=== PATIENT | female | born 1975 | race Caucasian/White ===

== ENCOUNTER 2019-10-02 06:35 | Outpatient (RCR) | payer OTHER ==
[~2019-10-02] VITALS: Ht 170 cm; Wt 68.1 kg
[2019-10-02] MEDS ORDERED: LABE200T7 PO (14:45)
== END 2019-10-02 16:00 | disposition home or self-care (01) ==
LOC: PREOP 06:35
PROVIDERS: ATTEND Obstetrics & Gynecology
DX: Z01.812 Encounter for preprocedural laboratory examination (principal); D25.9 Leiomyoma of uterus, unspecified; N81.4 Uterovaginal prolapse, unspecified; Z20.828 Contact with and (suspected) exposure to other viral communicable diseases

== ENCOUNTER → 2019-10-04 | Outpatient (CLI) | payer OTHER ==
[~2019-10-04] MED LIST: LABE200T7 PO
== END ==
LOC: LAB FS 11:49
PROVIDERS: ATTEND Obstetrics & Gynecology
DX: Z01.812 Encounter for preprocedural laboratory examination (principal); D25.9 Leiomyoma of uterus, unspecified; N81.4 Uterovaginal prolapse, unspecified; Z20.828 Contact with and (suspected) exposure to other viral communicable diseases
CPT/HCPCS: 87635

== ENCOUNTER 2019-10-08 06:08 | Day surgery (SDC) | payer OTHER ==
[~2019-10-08] VITALS: Ht 170 cm; Wt 68.1 kg
[2019-10-08] VITALS (23 sets, daily range): BP systolic 73–130; BP diastolic 43–90
--- OUTSIDE RECORDS SUMMARY | 2019-10-08 06:13 | XMS REPORT | Continuity of Care Document ---
Author Organization Unknown Address Unknown Phone Unavailable Allergies Active Description Code Type Severity Reaction Onset Reported/Identified Relationship to Patient Clinical Status Yes No Known Drug Allergies [id number] Drug Allergy Unknown N/A 10/02/2019 Medications There is no data. Problems Date Dx Coded Attending Type Code Diagnosis Diagnosed By 03/10/1599 SEALS DO, PAULINA E Ot D25.9 LEIOMYOMA OF UTERUS, UNSPECIFIED 03/10/1599 SEALS DO, PAULINA E Ot N81.4 UTEROVAGINAL PROLAPSE, UNSPECIFIED 03/10/1599 SEALS DO, PAULINA E Ot Z01.8 12 ENCOUNTER FOR PREPROCEDURAL LABORATORY E 03/10/1599 SEALS DO, PAULINA E Ot Z20.8 28 CONTACT W AND EXPOSURE TO OTH VIRAL COMM 10/06/2019 SEALS DO, PAULINA E Ot D25.9 LEIOMYOMA OF UTERUS, UNSPECIFIED 10/06/2019 SEALS DO, PAULINA E Ot N81.4 UTEROVAGINAL PROLAPSE, UNSPECIFIED 10/06/2019 SEALS DO, PAULINA E Ot Z01.8 12 ENCOUNTER FOR PREPROCEDURAL LABORATORY E 10/06/2019 SEALS DO, PAULINA E Ot Z20.8 28 CONTACT W AND EXPOSURE TO OTH VIRAL COMM Procedures There is no data. Results Test Result Range TSH - 03/02/19 08:59 TSH 3.05 mIU/L NRG Coronavirus SARS-CoV-2 SO 2018 - 0 12:00 Coronavirus Ab [Units/volume] in Serum Negative Negative Encounters ACCT No. Visit Date/Time Discharge Status Pt. Type Provider Facility Loc./Unit Complaint [id number] 06/22/2019 09:15:00 06/22/2019 23:59: 59 CLS Outpatient AVINASH FRANCES [facility] [id number] 03/02/2019 08:45:00 Document Registration [id number] 10/04/2019 11:49:00 020 23:59:59 CLS Outpatient PAULINA WILSON DO [facility] LAB FS PRE SURG REQ [id number] 10/02/2019 06:35:00 16:00:00 DIS Outpatient PAULINA WILSON DO [facility] PREOP UTERINE FIBROID,PELVIC PAIN [id number] 10/08/2019 06:08:[address] Outpatient PAULINA WILSON DO [facility] SDC PELVIC PAIN,UTERINE FIBROID
[2019-10-08] MEDS ORDERED: ceFAZolin 2 GM IV Premixed 50 ML IV ONE (06:30)
[2019-10-08] MEDS ORDERED: fentaNYL INJECTION 100 MCG/2 ML AMP ONE (06:37)
[2019-10-08] MEDS ORDERED: MIDAZOLAM 2 MG/2 ML (VERSED) VIAL ONE (06:37)
[2019-10-08] MEDS ORDERED: ONDANSETRON 4 MG/2 ML (SDV) Z0FRAN ONE (06:38)
[2019-10-08] MEDS ORDERED: LIDOCAINE PF 2% 5 ML (XYLOCAINE) VIAL ONE (06:38)
[2019-10-08] MEDS ORDERED: proPOfol 200 MG/20 ML (DIPRIVAN) VIAL IV ONE (06:38)
[2019-10-08] MEDS ORDERED: DEXAMETHASONE 10 MG/ML (DECADRON) 1 ML VIAL ONE (06:38)
[2019-10-08] MEDS ORDERED: SEVOFLURANE (ULTANE) 15 ML INHAL SOLN ONE (06:39)
[2019-10-08] MEDS: LACTATED RINGERS 1,000 ML IV PRN ×2 (06:40→07:47)
[2019-10-08] MEDS ORDERED: LIDOCAINE/EPI 2% 1:100,00 (XYLOCAINE) 20 ML VIAL ONE (06:43)
[2019-10-08] MEDS ORDERED: ESTROGENS CONJ. CREAM 30 GM (PREMARIN) TUBE ONE (06:44)
[2019-10-08] MEDS ORDERED: CATHETER FLUSH 10 ML SYR IV PRN (06:45)
[2019-10-08 06:54] LABS: BASOPHILS % (AUTO) 0 % (0-10); EOSINOPHILS # (AUTO) 0.3 10^3/uL (0.0-0.3); EOSINOPHILS % (AUTO) 5 % (0-10); HEMATOCRIT 37 % (35-52); HEMOGLOBIN 12.9 G/DL (11.5-16.0); LYMPHOCYTES # (AUTO) 1.5 X 10^3 (1.0-4.0); LYMPHOCYTES % (AUTO) 22 % (12-44); MEAN CORPUSCULAR HEMOGLOBIN 32 PG (25-34); MEAN CORPUSCULAR HGB CONC 35 G/DL (32-36); MEAN CORPUSCULAR VOLUME 91 FL (80-99); MEAN PLATELET VOLUME 10.1 FL (7.4-10.4); MONOCYTES # (AUTO) 0.4 X 10^3 (0.0-1.0); MONOCYTES % (AUTO) 6 % (0-12); NEUTROPHILS # (AUTO) 4.6 X 10^3 (1.8-7.8); NEUTROPHILS % (AUTO) 66 % (42-75); PLATELET COUNT 251 10^3/uL (130-400); RED CELL DISTRIBUTION WIDTH 12.2 % (10.0-14.5); WHITE BLOOD COUNT 6.9 10^3/uL (4.3-11.0)
--- NOTE | 2019-10-08 07:22 | History & Physical-OB/GYN ---
History of Present Illness History of Present Illness Reason for visit/HPI Ms. Syed presents to the hospital for scheduled surgery, Total Vaginal Hysterectomy secondary to pelvic pain, uterine prolapse and uterine fibroids seen on pelvic ultrasound Date of Admission October 08, 2019 Date Seen by a Provider: Oct 08, 2019 Time Seen by a Provider: 06:55 I consulted on this patient on 10/08/19 07:17 Attending Physician Jono Gaming DO Admitting Physician Jono Gaming DO Consult Allergies and Home Medications Allergies Coded Allergies: No Known Drug Allergies (Unverified , 10/02/19) Home Medications Labetalol HCl 200 Mg Tablet, 200 MG PO TID, (Reported) Patient Home Medication List Home Medication List Reviewed: Yes Past Uminvlg-Gydhij-Untpmq Hx Patient Social History Marrital Status: Number of Children: 6 Number of living children: 6 Employed/Student: employed Alcohol Use: Denies Use Recreational Drug Use: No Smoking Status: Never a Smoker Former Smoker, Quit: Oct 02, 1999 2nd Hand Smoke Exposure: No Recent Foreign Travel: No Contact w/other who traveled: No Recent Hopitalizations: No Immunizations Up To Date Pediatric: No Seasonal Allergies Seasonal Allergies: No Surgeries No Respiratory No Cardiovascular Yes Hypertension Neurological No Reproductive System Female Reproductive Disorders: Denies, Menstrual Problems Genitourinary No Gastrointestinal No Musculoskeletal No Endocrine History of Endocrine Disorders: No HEENT History of HEENT Disorders: Yes (GLASSES) Loss of Vision: Denies Hearing Impairment: Denies Psychosocial History of Psychiatric Problem: No Integumentary History of Skin or Integumenta: No Blood Transfusions History of Blood Disorders: No Adverse Reaction to a Blood Tr: No Review of Systems Constitutional: see HPI Physical Exam Physical Exam Vital Signs Vital Signs Date Time Temp Pulse Resp B/P (MAP) Pulse Ox O2 Delivery O2 Flow Rate FiO2 10/08/19 06:20 36.4 84 18 130/90 (103) 97 Room Air Capillary Refill : Labs Laboratory Tests 10/08/19 06:45: White Blood Count 6.9, Red Blood Count 4.02L, Hemoglobin 12.9, Hematocrit 37, Mean Corpuscular Volume 91, Mean Corpuscular Hemoglobin 32, Mean Corpuscular Hemoglobin Concent 35, Red Cell Distribution Width 12.2, Platelet Count 251, Mean Platelet Volume 10.1, Neutrophils (%) (Auto) 66, Lymphocytes (%) (Auto) 22, Monocytes (%) (Auto) 6, Eosinophils (%) (Auto) 5, Basophils (%) (Auto) 0, Neutrophils # (Auto) 4.6, Lymphocytes # (Auto) 1.5, Monocytes # (Auto) 0.4, Eosinophils # (Auto) 0.3, Basophils # (Auto) 0.0 General Appearance: No Apparent Distress, WD/WN Respiratory: Chest Non Tender, Lungs Clear, Normal Breath Sounds Cardiovascular: Regular Rate, Rhythm, No Murmur Abdominal: normal bowel sounds, non tender Labia: WNL Vagina: WNL, Bleeding (Started menses today), Prolapse (Uterine prolapse) Cervix: WNL Cervix OS: closed Uterus: WNL Extremity: Normal Inspection, Normal Range of Motion, Non Tender Assessment/Plan Assessment and Plan Assessment: Uterine Prolapse 2. Pelvic Pain 3. Uterine Fibroid Plan: Ms. Syed is scheduled for a Total Vaginal Hysterectomy. The procedure and its associated risks were reviewed. All questions were answered. Admission Diagnosis Admission Status: Inpatient Order (span 2 midnights) Reason for Inpatient Admission: Scheduled surgery, Total Vaginal Hysterectomy with Bilateral Salpingo-oophorectomy JONO GAMING DO Oct 08, 2019 07:22
[2019-10-08] MEDS ORDERED: KETOROLAC 30 MG/ML VIAL ONE (08:08)
[2019-10-08] MEDS ORDERED: HYDROmorphone 2 MG/ML VIAL (DILAUDID) ONE (08:10)
[2019-10-08] MEDS ORDERED: HYDROmorphone 2 MG/ML VIAL (DILAUDID) IV ONE (08:45)
[2019-10-08] MEDS ORDERED: ONDANSETRON 4 MG (ZOFRAN) ORAL DISSOLVE TAB PO PRN (08:45)
[2019-10-08] MEDS ORDERED: ONDANSETRON 4 MG/2 ML (SDV) Z0FRAN IVP PRN ×2 (08:45)
[2019-10-08] MEDS ORDERED: fentaNYL INJECTION 100 MCG/2 ML AMP IVP PRN (08:45)
[2019-10-08] MEDS ORDERED: BENZOCAINE/MENTHOL (DERMOPLAST) 60 ML CAN TP PRN (08:45)
[2019-10-08] MEDS ORDERED: oxyCODONE/APAP 5/325MG (PERCOCET 5) TABLET PO SCH (08:45)
[2019-10-08] MEDS ORDERED: LACTATED RINGERS 1,000 ML IV SCH (08:50)
--- NOTE | 2019-10-08 09:00 | Operative Report ---
Operative Report Date of Procedure/Surgery Oct 08, 2019 Surgeon (s) PAULINA WILSON DO Double Cut Off Saw Operator (s): None Post-Operative Diagnosis Pelvic Pain 2. Uterine Prolapse 3. Uterine Fibroid Procedure Performed Total Vaginal Hysterectomy with Right Salpingo-oophorectomy Description of Procedure Anesthesia Type: General Estimated blood loss (mL): 400 ml Specimen(s) collected/removed Uterus, Right Fallopian Tube and Ovary Packing: Vaginal packing moistened with Premarin Vaginal Cream Description of the Procedure Ms. Syed was taken to the Operating Room with IV fluids running. Once in the OR, general anesthesia was administered without difficulty. She was then placed in the dorsal lithotomy position, prepped and draped in the normal sterile fashion. A Castillo Catheter was inserted. A weighted speculum was introduced into the vaginal vault. The cervix was grasped with a Albert clamp, then circumferentially injected with local anesthesia with Epinephrine. A circular incision was made in the same area. The vesicovaginal tissue was dissected off the anterior portion of the cervix, manually. The anterior cul de sac was entered. A Ramiro retractor was placed in this area to displace the bladder from the surgical field. The posterior cul de sac was entered sharply and a "ski slope" weighted speculum was placed in this area. The uterosacral-cardinal complex was clamped on both sides, transected and suture ligated with 0-Vicryl. At this point, the broad ligament on both sides were serially clamped, cut and suture ligated with 0-Vicryl. The coronal edge, bilaterally was clamped, cut, suture ligated with 0-Vicryl. The uterus was delivered. At this point, it was noted that there was steady bleeding from the right ovary--an attempt at suturing the area failed. Consequently, the right tube and ovary was removed. The left fallopian tube was visualized and was unremarkable. Hemostasis was noted throughout the pelvic cavity. The peritoneum was purse string closed with 3-0 Vicryl. The vaginal cuff was closed with 0-Vicryl attached to the uterosacral-cardinal complex with 0-Vicryl. The vaginal vault was packed with vaginal packing moistened with Premarin Vaginal Cream. Sponge, instrument, and needle counts were correct x 3. Ms. Syed was taken to the Recovery Room in good and stable condition. Findings of the Procedure Normal appearing uterus, ovaries, and fallopian tubes. Right ovary had uncontrolled bleeding--consequently was removed. Allergies and Home Medications Allergies Coded Allergies: No Known Drug Allergies (Unverified , 10/02/19) Home Medications Labetalol HCl 200 Mg Tablet, 200 MG PO TID, (Reported) Patient Home Medication List Home Medication List Reviewed: Yes PAULINA WILSON DO Oct 08, 2019 09:00
[2019-10-08] MEDS ORDERED: IBUPROFEN 800 MG (MOTRIN) TAB PO ONE (10:54)
[2019-10-08] MEDS ORDERED: oxyCODONE/APAP 5/325MG (PERCOCET 5) TABLET ONE (10:54)
[2019-10-08] MEDS ORDERED: LORazepam INJ 2 MG/ML (ATIVAN) VIAL IVP ONE (11:00)
[2019-10-08] MEDS ORDERED: NS IV 1000 ML 1,000 ML ONE (11:41)
[2019-10-08] MEDS: IBUPROFEN 800 MG (MOTRIN) TAB PO SCH ×2 (14:17→23:43)
[2019-10-08] MEDS: METOCLOPRAMIDE 10 MG (REGLAN) TAB PO SCH ×2 (16:20→23:42)
[2019-10-08 16:43] LABS: HEMOGLOBIN 9.3 G/DL (11.5-16.0)
[2019-10-08] MEDS: NS IV 500 ML 500 ML IV SCH (18:44)
[2019-10-08] MEDS ORDERED: SIMETHICONE 80 MG (MYLICON) CHEW PO ONE (19:30)
[2019-10-08] MEDS ORDERED: SIMETHICONE 80 MG (MYLICON) CHEW ONE (19:30)
[2019-10-08] MEDS ORDERED: ZOLPIDEM 5 MG (AMBIEN) TAB PO SCH (21:00)
[2019-10-08] MEDS: SIMETHICONE 80 MG (MYLICON) CHEW PO PRN (23:43)
[2019-10-09] MEDS ORDERED: NS IV 500 ML 500 ML ONE (04:42)
[2019-10-09 04:45] VITALS: BP 122/78
[2019-10-09] MEDS: NS IV 500 ML 500 ML IV SCH (04:48)
[2019-10-09] MEDS ORDERED: MILK OF MAGNESIA 400 MG/5 ML 30 ML UDC PO ONE (05:00)
[2019-10-09] MEDS ORDERED: BISACODYL 10 MG SUPP (DULCOLAX) PR ONE (05:00)
[2019-10-09 06:28] LABS: BASOPHILS % (AUTO) 0 % (0-10); EOSINOPHILS % (AUTO) 0 % (0-10); HEMATOCRIT 29 % (35-52); LYMPHOCYTES # (AUTO) 1.7 X 10^3 (1.0-4.0); LYMPHOCYTES % (AUTO) 11 % (12-44); MEAN CORPUSCULAR HEMOGLOBIN 32 PG (25-34); MEAN CORPUSCULAR HGB CONC 35 G/DL (32-36); MEAN CORPUSCULAR VOLUME 91 FL (80-99); MEAN PLATELET VOLUME 10.2 FL (7.4-10.4); MONOCYTES # (AUTO) 0.9 X 10^3 (0.0-1.0); MONOCYTES % (AUTO) 6 % (0-12); NEUTROPHILS # (AUTO) 12.8 X 10^3 (1.8-7.8); NEUTROPHILS % (AUTO) 83 % (42-75); PLATELET COUNT 201 10^3/uL (130-400); RED CELL DISTRIBUTION WIDTH 13.1 % (10.0-14.5); WHITE BLOOD COUNT 15.4 10^3/uL (4.3-11.0)
[2019-10-09] MEDS ORDERED: OXYC1TAB87 PO (06:31)
[2019-10-09] MEDS ORDERED: IBUP-1780 PO (06:31)
[2019-10-09] MEDS ORDERED: DCS100C PO (06:31)
--- NOTE | 2019-10-09 06:37 | Discharge Summary ---
Diagnosis/Chief Complaint Date of Admission October 08, 2019 Date of Discharge October 09, 2019 Discharge Date: Oct 09, 2019 Discharge Time: 13:00 Admission Diagnosis Admission Diagnosis Pelvic Pain 2. Uterine Prolapse 3. Uterine Fibroid Discharge Diagnosis Pelvic Pain 2. Uterine Prolapse 3. Uterine Fibroid Reason Hospital Visit Ms. Syed presents to the hospital for scheduled surgery, Total Vaginal Hysterectomy secondary to pelvic pain, uterine prolapse and uterine fibroids seen on pelvic ultrasound Discharge Summary Hospital Course Was the Problem List Reviewed?: Yes Hospital Course Ms. Syed was admitted to the hospital for scheduled surgery, Total Vaginal Hysterectomy with Right Salpingo-oophorectomy. The surgery was complicated by increased blood loss. On the day of surgery, she was started on oral and IV pain medications. Also, she was given two units of blood secondary pale disc oloration and drop in blood pressure. Postoperative Day #1, Ms. Syed admits to feeling much better. She states that her pain is under control and she doesn't feel bad. She was given medication to increase her bowel function, once she she has a bowel movement we will advance her diet. She is voiding, ambulating, and controlling her pain oral medication only. We will discharge her to home with instructions, prescriptions, and a follow up appointment. Labs Laboratory Tests 10/08/19 06:45: Red Blood Count 4.02L 10/08/19 16:35: Hemoglobin 9.3#L, Hematocrit 27L 10/09/19 06:17: Red Blood Count 3.15L, Hemoglobin 10.0L, Hematocrit 29L, White Blood Count 15.4H , Neutrophils (%) (Auto) 83H, Lymphocytes (%) (Auto) 11L, Neutrophils # (Auto) 12.8H Procedures None. Discharge Physical Examination Allergies: Coded Allergies: No Known Drug Allergies (Unverified , 10/02/19) Vitals & I&Os Vital Signs Date Time Temp Pulse Resp B/P (MAP) Pulse Ox O2 Delivery O2 Flow Rate FiO2 10/09/19 04:45 37.2 81 18 122/78 (93) 97 10/08/19 18:59 Room Air 10/08/19 08:50 3 General Appearance: Oriented X3, Cooperative HEENT: Atraumatic Respiratory: Clear to Auscultation, Normal Air Movement Cardiovascular: Regular Rate, No Murmurs Extremities: No Clubbing, No Cyanosis Skin: No Rashes Neuro: Normal Gait, Normal Speech Psych/Mental Status: Mental Status NL Discharge Home Medications Reviewed and agree with Discharge Medication list on patient's Discharge Instruction sheet Instructions to Patient/Family Please see electronic discharge instructions given to patient. Clinical Quality Measures DVT/VTE Risk/Contraindication: Risk Factor Score Per Nursin RFS Level Per Nursing on Admit: 4+=Very High PAULINA WILSON DO Oct 09, 2019 06:37
--- NOTE | 2019-10-09 06:45 | Anesthesia-General Post-Op ---
General Patient Condition Mental Status/LOC: Same as Preop Cardiovascular: Satisfactory Nausea/Vomiting: Absent Respiratory: Satisfactory Pain: Controlled Complications: Absent Post Op Complications Complications None Follow Up Care/Instructions Patient Instructions None needed. Anesthesia/Patient Condition Patient Condition Patient is doing well, no complaints, stable vital signs, no apparent adverse anesthesia problems. No complications reported per nursing. [place] [facility] [place]: Yes JOSE ALEJANDRO THOMPSON CRNA Oct 09, 2019 06:45
[2019-10-09 08:35] VITALS: BP 128/86
--- NOTE | 2019-10-09 08:35 | NUR ---
vs taken. pt resting in bed. reports pain level 3-4 but denies need for pain medication. pt denies void or stool. continues to rest. cl bibiana tray at bedside. instructed to call if needing assistance to go to the bathroom
[2019-10-09] MEDS ORDERED: DOCUSATE SODIUM 100 MG (COLACE) CAP PO SCH (09:00)
[2019-10-09] MEDS ORDERED: ESTRADIOL 1 MG TAB (ESTRACE) PO SCH (09:00)
[2019-10-09] MEDS: SIMETHICONE 80 MG (MYLICON) CHEW PO PRN (09:54)
[2019-10-09] MEDS: METOCLOPRAMIDE 10 MG (REGLAN) TAB PO SCH (09:54)
[2019-10-09] MEDS ORDERED: MILK OF MAGNESIA 400 MG/5 ML 30 ML UDC ONE (11:26)
[2019-10-09] MEDS: IBUPROFEN 800 MG (MOTRIN) TAB PO SCH (11:39)
[2019-10-09 11:40] VITALS: BP 138/87
[2019-10-09 14:00] VITALS: BP 124/78
--- NOTE | 2019-10-09 18:30 | NUR ---
RAHEL MANZANO demonstrates understanding of discharge instructions and accurately returns instructions upon questioning. Copy of Post-Discharge Instructions and Medication Discharge Instructions given to patient. RAHEL MANZANO is able to manage continuing needs after discharge. Patients belongings returned to patient. Skin dry and intact; no breakdown noted. Patient discharged from 3306-1 on 10-09-19 at 1830. RAHEL MANZANO left floor via w/c, accompanied by staff.
== END 2019-10-09 18:30 | disposition home or self-care (01) ==
LOC: SDC 06:08 → EDSTATUS 07:30 → WS 09:40 → SDC 10-09 18:30
PROVIDERS: ATTEND Obstetrics & Gynecology
DX: D25.1 Intramural leiomyoma of uterus (principal); N72 Inflammatory disease of cervix uteri; N83.201 Unspecified ovarian cyst, right side; N81.4 Uterovaginal prolapse, unspecified; I10 Essential (primary) hypertension
CPT/HCPCS: 58571; 84703; 85014; 85018; 85025 ×2; 86850; 86900; 86901; 86920; 87081; 88307; 94664; P9016; 36415